=== PATIENT | male | born 1980 | race Caucasian/White ===

== ENCOUNTER 2019-05-26 09:16 | Emergency (ER) | payer OTHER ==
[~2019-05-26] VITALS: Ht 170.2 cm; Wt 57.6 kg
--- NOTE | 2019-05-26 09:20 | NUR ---
AT BEDSIDE FOR EVAL.
[2019-05-26] MEDS ORDERED: ONDANSETRON 4 MG TAB.RAPDIS ONE (09:28)
[2019-05-26] MEDS ORDERED: CLONIDINE HCL 0.1 MG TABLET ONE (09:28)
[2019-05-26 09:31] VITALS: BP 147/92
[2019-05-26] MEDS: ONDANSETRON 4 MG TAB.RAPDIS SL ONE (09:31)
[2019-05-26] MEDS: CLONIDINE HCL 0.1 MG TABLET PO ONE (09:31)
== END 2019-05-26 09:32 | disposition home or self-care (01) ==
LOC: ER 09:21
DX: F11.23 Opioid dependence with withdrawal (principal); F17.200 Nicotine dependence, unspecified, uncomplicated; Z90.89 Acquired absence of other organs
CPT/HCPCS: 99283; Q0162

== ENCOUNTER 2021-08-13 09:41 | Emergency (ER) | payer OTHER ==
[~2021-08-13] VITALS: Ht 170.2 cm; Wt 63.5 kg
[2021-08-13 09:45] VITALS: BP 120/90
[2021-08-13] MEDS ORDERED: ONDANSETRON 4 MG TAB.RAPDIS SL ONE (10:00)
[2021-08-13] MEDS ORDERED: ONDANSETRON 4 MG TAB.RAPDIS ONE (10:12)
--- NOTE | 2021-08-13 10:24 | NUR ---
patient left in stable condition accompanied by lapd in no distress.
== END 2021-08-13 10:24 ==
LOC: ER 09:42
DX: F11.23 Opioid dependence with withdrawal (principal); Z90.89 Acquired absence of other organs
CPT/HCPCS: 99283; Q0162